=== PATIENT | male | born 1955 ===

== ENCOUNTER 2022-07-13 09:25 | Day surgery (SDC) | payer OTHER ==
[~2022-07-13 09:25] MED LIST: DIOVAN320 MG PO; GLUCOVANCE PO; LIPITOR20 MG PO; NORVASC5 MG PO; ONGLYZA5 MG PO; PREVA PO
[2022-07-13] MEDS ORDERED: TRAMADOL HCL50 MG PO (16:42)
[2022-07-13] MEDS ORDERED: TYLENOL ARTHRI650 MG PO (16:42)
[2022-07-13] MEDS ORDERED: MIRALAX17 GM PO (16:42)
== END 2022-07-13 18:00 | disposition home or self-care (01) ==
LOC: CIR.AMB 09:25
PROVIDERS: ATTEND Surgery
DX: K40.90 Unilateral inguinal hernia, without obstruction or gangrene, not specified as recurrent (principal); K42.9 Umbilical hernia without obstruction or gangrene; Z91.013 Allergy to seafood; I10 Essential (primary) hypertension; E78.49 Other hyperlipidemia; Z87.891 Personal history of nicotine dependence; F12.90 Cannabis use, unspecified, uncomplicated; E11.9 Type 2 diabetes mellitus without complications; Z79.84 Long term (current) use of oral hypoglycemic drugs; Z20.822 Contact with and (suspected) exposure to COVID-19
CPT/HCPCS: 49650; 49591; C1781